=== PATIENT | male | born 2000 | race Two or more races ===

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

== ENCOUNTER 2019-08-31 14:10 | Emergency (ER) | payer OTHER, MEDICAID ==
[~2019-08-31] VITALS: Ht 182.9 cm; Wt 140.6 kg
[2019-08-31 14:20] VITALS: BP 162/88
== END 2019-08-31 14:32 | disposition left against medical advice (07) ==
LOC: EDBD 14:10 → ER 14:10 → EDSEX 14:10 → ER 14:32
DX: R10.9 Unspecified abdominal pain (principal); Z53.21 Procedure and treatment not carried out due to patient leaving prior to being seen by health care provider